=== PATIENT | male | born 1960 | race Caucasian/White ===

== ENCOUNTER 2017-08-22 12:49 | Emergency (ER) | payer OTHER ==
[~2017-08-22] VITALS: Ht 195.6 cm; Wt 106.3 kg
[2017-08-22 13:15] VITALS: BP 145/76
[2017-08-22] MEDS ORDERED: ACETAMINOPHEN 500 MG TABLET PO ONE (14:00)
[2017-08-22] MEDS ORDERED: ENAL20TA PO (15:02)
[2017-08-22] MEDS ORDERED: ALBU18HF INH (15:02)
[2017-08-22] MEDS ORDERED: METF500T4 PO (15:02)
== END 2017-08-22 15:27 | disposition home or self-care (01) ==
LOC: ED 15:21
DX: B34.9 Viral infection, unspecified (principal); E11.9 Type 2 diabetes mellitus without complications
CPT/HCPCS: 71020; 99284